=== PATIENT | male | born 1980 | race Caucasian/White ===

== ENCOUNTER 2017-03-30 10:12 | Emergency (ER) | payer OTHER ==
[~2017-03-30] VITALS: Ht 185.4 cm; Wt 110.5 kg
[~2017-03-30 10:12] MED LIST: BENZ100C70 PO; BTM.05O15 TOP; CYCL-319 PO; FLUT16SP24 NASAL; IBUP-1542 PO; IBUP800T25 PO; PROM6.25 PO; PSEU120T11 PO
[2017-03-30 10:14] VITALS: Ht 185.4 cm; Wt 110.5 kg
[2017-03-30] MEDS ORDERED: FLUORESCEIN STRIP BOTH EYES ONE (11:00)
[2017-03-30] MEDS ORDERED: TETRACAINE 0.5% 4 ML OPH BOTH EYES ONE (11:00)
[2017-03-30] MEDS ORDERED: OFLO5DRO46 BOTH EYES (11:47)
--- NOTE | 2017-03-30 15:49 | ERD ---
ER Documentation Chief Complaint Chief Complaint had pink eye last week, feels like something in right eye, red watering HPI 36-year-old male patient with no significant past medical history presents to the ED complaining of having conjunctivitis 1-2 weeks ago and reports that he had some purulent discharge in his bilateral eyes and crusts. Reports that he was applying eyedrops from [place]. Reports that he wears contacts. States that he is currently not wearing any contacts and does not own any glasses. Reports that he did some research online and put some lemon juice as well as aloe vera in his bilateral eyes which minimally alleviated his symptoms. States that he has blurred vision only because he is not wearing his contacts. Reports that he feels like he cut his eye and feels like there is a hair in his right eye. Denies any eye pain, vision loss, diplopia, photophobia, fever, chills, nausea, vomiting, headache, weakness. ROS All systems reviewed and are negative except as per history of present illness. Medications Home Meds Active Scripts Acetaminophen with Codeine (Acetaminophen-Cod #3 Tablet) 1 Each Tablet, 1 TAB PO Q6H Y for PAIN, #10 TAB Prov:LILLY OLSON MD 03/31/17 Ofloxacin* (Ocuflox*) 0.3%-5 Ml Ophth Drops, 1 DROP BOTH EYES QID, #1 BOTTLE instill 1 drop every 2 hours while awake for 2 days, THEN every 4-8 hours for 5 days Prov:JAYA CHAPA PA-C 03/30/17 Betamethasone Dipropionate* (Betamethasone Dipropionate*) 0.05% - 15 Gm Oint, 1 APPLIC TOP DAILY for 5 Days, #45 GM 0 Refills APPLY TO: Prov:HERNAN ALMENDAREZ PA-C 11/03/15 Cyclobenzaprine Hcl* (Cyclobenzaprine Hcl*) 10 Mg Tablet, 10 MG PO TID for 5 Days, #15 TAB 0 Refills Prov:HERNAN ALMENDAREZ PA-C 11/03/15 Ibuprofen* (Motrin*) 600 Mg Tab, 600 MG PO Q8 for 10 Days, #30 TAB 0 Refills Prov:HERNAN ALMENDAREZ PA-C 11/03/15 Ibuprofen* (Ibuprofen*) 800 Mg Tablet, 800 MG PO Q6H Y for PAIN, #30 TAB Prov:SILVIA STOUT PA-C 11/16/14 Fluticasone Propionate* (Flonase* Nasal) 50 Mcg/[place] - 16 Gm [place].susp, 1 SPRAY NASAL DAILY, #1 SPRAY TO EACH NOSTRIL Prov:SILVIA STOUT PA-C 11/16/14 Pseudoephedrine Hcl (Sudafe 12-Hour) 120 Mg Tablet.er, 30 MG PO BID Y for CONGESTION, #30 TAB.SA Prov:SILVIA STOUT PA-C 11/16/14 Promethazine w/Codeine* (Phenergan w/Codeine* Syrup) 5 Ml Syrup, 5 ML PO QHS Y for COUGH, #100 ML Prov:SILVIA STOUT PA-C 11/16/14 Benzonatate* (Tessalon Perle*) 100 Mg Capsule, 100 MG PO TID, #30 CAP Prov:SILVIA STOUT PA-C 11/16/14 Allergies Allergies: Coded Allergies: No Known Allergy (Unverified , 11/03/15) PMhx/Soc Hx Miscellaneous Medical Probl: Yes (SCIATICA) Hx Alcohol Use: No Hx Substance Use: Yes (marijuana*-/) Hx Tobacco Use: No Smoking Status: Current some day smoker Physical Exam Vitals Vital Signs Date Time Temp Pulse Resp B/P Pulse Ox O2 Delivery O2 Flow Rate FiO2 03/30/17 10:14 98.6 82 18 141/92 99 Physical Exam Const: [id number], well-nourished. In no acute distress. Head: Atraumatic, normocephalic Eyes: Normal Conjunctiva without injection. No purulent discharge. PERRLA. EOMI ENT: Normal external ear. Ear canal without erythema. Tympanic membrane pearly valentine without effusion or bulging. Nasal canal clear with normal turbinates. Moist oropharynx without tonsillar exudates. Non-erythematous pharynx. Uvula midline. No drooling. No trismus. Neck: No cervical midline tenderness. Full range of motion. No meningismus. No cervical lymphadenopathy. No JVD. Resp: Clear to auscultation bilaterally. No wheezing, rhonchi, rales, or crackles. No accessory muscle use. No retractions. Cardio: Regular rate and rhythm. No murmurs, rubs or gallops. Skin: Normal skin turgor. No petechiae or rashes Back: No midline tenderness. No CVA tenderness. Ext: No cyanosis, or edema. Distal pulses intact bilaterally. Neur: Awake and alert. Normal gait. Normal coordination. Cranial Nerves II- VII intact. Normal finger to nose. Muscle strength 5/5. Sensation intact. Psych: Normal Mood and Affect Results 24 hrs Current Medications Medications (Trade) Dose Ordered Sig/Lakshmi Route PRN Reason Start Time Stop Time Status Last Admin Dose Admin Tetracaine HCl (Tetracaine 0.5% Steri-Unit Tiana) 1 drop ONCE ONCE BOTH EYES 03/30/17 11:00 03/30/17 11:01 DC Fluorescein Sodium (Lyfva-R-Citcr) 1 strip ONCE ONCE BOTH EYES 03/30/17 11:00 03/30/17 11:01 DC Procedures/MDM 36-year-old male patient with no significant past medical history presents to the ED complaining of bilateral pinkeye and feeling like a foreign body sensation in his right eye. Patient is afebrile and nontoxic-appearing. Patient has normal vital signs. Eye Exam w/ Wood's lamp: Visual Acuity: [20/200 Bilateral. Patient is not wearing his contacts] Visual Spring: Intact in all four quadrants bilaterally Lac ducts/glands: No swelling Lids w/ evertion: Normal, no foreign body Conj/[place]: Clear, negative Fluorescein/Joyce's Anterior Chamber: Clear Patient's ocular symptoms have stabilized while they have been evaluated in the department and are appropriate for outpatient work up. Patient will be treated for a possible corneal abrasion vs. ulcer however no fluorescein uptake noted. Patient feels slightly better with normal saline eye wash here in the ED. Low suspicion for ruptured globe, retinal detachment, periorbital cellulitis, acute angle closure glaucoma, deep space infection, optic neuritis, retinal artery ischemia, iritis, traumatic hyphema, subconjunctival hemorrhage, pterygium, hypopyon, blepharitis, hordeolum, chalazion, or other emergent conditions. Discharge medications: Ocuflox Strictly instructed patient to follow up with an chief creative officer within 24 hours. Instructed patient to not wear his contacts and to purchase glasses. Instructed patient to return to the ED for any worsening symptoms. Patient is hemodynamically stable. Patient's questions were answered. Patient understood and agreed with discharge plan. Departure Diagnosis: Primary Impression: Sensation of foreign body in eye Patient Instructions: Corneal Injury, Contact Lens Referrals: [facility] YOU HAVE RECEIVED A MEDICAL SCREENING EXAM AND THE RESULTS INDICATE THAT YOU DO NOT HAVE A CONDITION THAT REQUIRES URGENT TREATMENT IN THE EMERGENCY DEPARTMENT. FURTHER EVALUATION AND TREATMENT OF YOUR CONDITION CAN WAIT UNTIL YOU ARE SEEN IN YOUR DOCTORS OFFICE WITHIN THE NEXT 1-2 DAYS. IT IS YOUR RESPONSIBILITY TO MAKE AN APPOINTMENT FOR FOLOW-UP CARE. IF YOU HAVE A PRIMARY DOCTOR --you should call your primary doctor and schedule an appointment IF YOU DO NOT HAVE A PRIMARY DOCTOR YOU CAN CALL OUR PHYSICIAN REFERRAL HOTLINE AT IF YOU CAN NOT AFFORD TO SEE A PHYSICIAN YOU CAN CHOSE FROM THE FOLLOWING [facility] [address] [facility] [address] [facility] [address] [facility] [address] [facility] [address] [facility] [facility] [address] [facility]. [facility] YOU HAVE RECEIVED A MEDICAL SCREENING EXAM AND THE RESULTS INDICATE THAT YOU DO NOT HAVE A CONDITION THAT REQUIRES URGENT TREATMENT IN THE EMERGENCY DEPARTMENT. FURTHER EVALUATION AND TREATMENT OF YOUR CONDITION CAN WAIT UNTIL YOU ARE SEEN IN YOUR DOCTORS OFFICE WITHIN THE NEXT 1-2 DAYS. IT IS YOUR RESPONSIBILITY TO MAKE AN APPOINTMENT FOR FOLOW-UP CARE. IF YOU HAVE A PRIMARY DOCTOR --you should call your primary doctor and schedule and appointment IF YOU DO NOT HAVE A PRIMARY DOCTOR YOU CAN CALL OUR PHYSICIAN REFERRAL HOTLINE AT . IF YOU CAN NOT AFFORD TO SEE A PHYSICIAN YOU CAN CHOSE FROM THE FOLLOWING [facility]: [facility] [address] [place] [address] [facility] [address] [place] [address] [facility] [address] [place] [address] [facility] Hours: Mon - Fri 9:00 AM - 5:00 PM Additional Instructions: FOLLOW UP WITH PRIVATE BANKER/OPTHALMOLOGIST WITHIN 24 HOURS.Return to this facility if you are not improving as expected - vision loss, eye pain, fever, etc. JAYA CHAPA PA-C Mar 30, 2017 15:49
[2017-03-31] MEDS ORDERED: ACET1TAB40 PO (17:01)
== END 2017-03-30 11:58 | disposition home or self-care (01) ==
LOC: FTE 10:12
DX: H57.8 Other specified disorders of eye and adnexa (principal); F17.210 Nicotine dependence, cigarettes, uncomplicated
CPT/HCPCS: Z7610 ×2; 99283

== ENCOUNTER 2017-03-31 16:15 | Emergency (ER) | payer OTHER ==
[~2017-03-31] VITALS: Ht 188 cm; Wt 109.6 kg
[~2017-03-31 16:15] MED LIST changes: +OFLO5DRO46 BOTH EYES
[2017-03-31 16:18] VITALS: Ht 188 cm; Wt 109.6 kg
[2017-03-31] MEDS ORDERED: IBUPROFEN 600 MG TAB PO ONE (17:00)
[2017-03-31] MEDS ORDERED: CIPROFLOXACIN 0.3% 2.5 ML OPH LEFT EYE ONE (17:00)
[2017-03-31] MEDS ORDERED: traMADol 50 MG TAB PO ONE (17:00)
[2017-03-31] MEDS ORDERED: ACET1TAB40 PO (17:01)
--- NOTE | 2017-03-31 17:07 | ERD ---
ER Documentation Chief Complaint Chief Complaint left eye pain after wearing contact was here yesterday, dx conjunctivitis HPI This 28-year-old male presents with left eye pain. History significant for having self-described pinkeye while in [place] 2 weeks ago. He did have some symptoms which improved but he feels like he reinfected himself by wearing his contacts. Seen here yesterday diagnosed with corneal abrasion or conjunctivitis and prescribed Ciloxan. He did not think of his medication from the pharmacy. He does not have glasses he has very poor visual acuity without his contacts. Patient had a job interview today and put his contacts to temporarily be able to drive. He had worsening of pain today in the left eye. Denies any purulent discharge or visual field deficits fevers. ROS All systems reviewed and are negative except as per history of present illness. Medications Home Meds Active Scripts Acetaminophen with Codeine (Acetaminophen-Cod #3 Tablet) 1 Each Tablet, 1 TAB PO Q6H Y for PAIN, #10 TAB Prov:LILLY OLSON MD 03/31/17 Ofloxacin* (Ocuflox*) 0.3%-5 Ml Ophth Drops, 1 DROP BOTH EYES QID, #1 BOTTLE instill 1 drop every 2 hours while awake for 2 days, THEN every 4-8 hours for 5 days Prov:JAYA CHAPA PA-C 03/30/17 Betamethasone Dipropionate* (Betamethasone Dipropionate*) 0.05% - 15 Gm Oint, 1 APPLIC TOP DAILY for 5 Days, #45 GM 0 Refills APPLY TO: Prov:HERNAN ALMENDAREZ PA-C 11/03/15 Cyclobenzaprine Hcl* (Cyclobenzaprine Hcl*) 10 Mg Tablet, 10 MG PO TID for 5 Days, #15 TAB 0 Refills Prov:HERANN ALMENDAREZ PA-C 11/03/15 Ibuprofen* (Motrin*) 600 Mg Tab, 600 MG PO Q8 for 10 Days, #30 TAB 0 Refills Prov:HERNAN ALMENDAREZ PA-C 11/03/15 Ibuprofen* (Ibuprofen*) 800 Mg Tablet, 800 MG PO Q6H Y for PAIN, #30 TAB Prov:SILVIA STOUT PA-C 11/16/14 Fluticasone Propionate* (Flonase* Nasal) 50 Mcg/[place] - 16 Gm [place].susp, 1 SPRAY NASAL DAILY, #1 SPRAY TO EACH NOSTRIL Prov:SILVIA STOUT PA-C 11/16/14 Pseudoephedrine Hcl (Sudafe 12-Hour) 120 Mg Tablet.er, 30 MG PO BID Y for CONGESTION, #30 TAB.SA Prov:SILVIA STOUT PA-C 11/16/14 Promethazine w/Codeine* (Phenergan w/Codeine* Syrup) 5 Ml Syrup, 5 ML PO QHS Y for COUGH, #100 ML Prov:SILVIA STOUT PA-C 11/16/14 Benzonatate* (Tessalon Perle*) 100 Mg Capsule, 100 MG PO TID, #30 CAP Prov:SILVIA STOUT PA-C 11/16/14 Allergies Allergies: Coded Allergies: No Known Allergy (Unverified , 11/03/15) PMhx/Soc Medical and Surgical Hx: pt denies Medical Hx, pt denies Surgical Hx Hx Miscellaneous Medical Probl: Yes (SCIATICA) Hx Alcohol Use: No Hx Substance Use: Yes (marijuana*-/) Hx Tobacco Use: No Smoking Status: Never smoker Physical Exam Vitals Vital Signs Date Time Temp Pulse Resp B/P Pulse Ox O2 Delivery O2 Flow Rate FiO2 03/31/17 16:18 97.6 82 18 174/96 100 Physical Exam Const: [] Alert, [id number]. But uncomfortable due to pain. Head: Atraumatic Eyes: Scleral redness. Very slight punctate fluorescein uptake at 6:00. Anterior chambers appear normal. No cloudy cornea. Eyes are PERRLA and extraocular movements intact. No proptosis or erythema. ENT: Normal External Ears, Nose and Mouth. Neck: Full range of motion..~ No meningismus. Resp: Clear to auscultation bilaterally Cardio: Regular rate and rhythm, no murmurs Abd: Soft, non tender, non distended. Normal bowel sounds Skin: No petechiae or rashes Back: No midline or flank tenderness Ext: No cyanosis, or edema Neur: Awake and alert Psych: Normal Mood and Affect Results 24 hrs Current Medications Medications (Trade) Dose Ordered Sig/Lakshmi Route PRN Reason Start Time Stop Time Status Last Admin Dose Admin Ciprofloxacin HCl (Ciloxan 0.3% Oph) 2 drop ONCE ONCE LEFT EYE 03/31/17 17:00 03/31/17 17:01 DC Ibuprofen (Motrin) 600 mg ONCE ONCE PO 03/31/17 17:00 03/31/17 17:01 DC Tramadol HCl (Ultram) 50 mg ONCE ONCE PO 03/31/17 17:00 03/31/17 17:01 DC Procedures/MDM Patient presents with left eye pain and signs of likely small corneal abrasion or possibly tiny ulcer. There is no evidence of new visual changes or visual field deficits. No evidence of orbital cellulitis, signs or symptoms suggest optic neuritis, retinal artery ischemia, retinal detachment. Patient was administered Cipro eyedrops here and she is noncompliant with his prescription. He is also given tramadol ibuprofen and reinforced recommendations for follow- up with ophthalmology. He was given resources for local ophthalmology. Patient was advised also to wear glasses while his eye condition resolves. Patient states that he does not have any money for glasses but encouraged to not wear contacts if he is having symptoms nonetheless. The patient was stable with no new complaints during the ER course. Clinically, there is no current evidence to suggest meningitis, sepsis, acute abdomen, pneumonia, acute coronary syndrome, pulmonary embolism, or any other emergent condition appearing to require further evaluation or hospitalization. The patient should certainly return for any new or worsening symptoms per the aftercare instructions. They should otherwise follow-up with her primary care doctor for reevaluation this week. Departure Diagnosis: Primary Impression: Corneal abrasion Encounter type: initial encounter Laterality: left Qualified Code: S05.02XA - Abrasion of left cornea, initial encounter Condition: Stable Patient Instructions: Corneal Abrasion, Corneal Injury, Contact Lens, Corneal Ulcer Referrals: [facility] Hours: Mon - Fri 9:00 AM - 5:00 PM Additional Instructions: LIKELY A corneal abrasion or possibly infection. See regional otr company driver for further management treatment. Recommend no contact lenses until symptoms are completely resolved. Use ophthalmic drops as prescribed 4 times a day. LILLY OLSON MD Mar 31, 2017 17:07
== END 2017-03-31 17:29 | disposition home or self-care (01) ==
LOC: FTE 16:15
DX: S05.02XA Injury of conjunctiva and corneal abrasion without foreign body, left eye, initial encounter (principal); X58.XXXA Exposure to other specified factors, initial encounter; Y92.9 Unspecified place or not applicable
CPT/HCPCS: Z7502; Z7610; 99283

== ENCOUNTER 2018-04-21 22:08 | Emergency (ER) | END 2018-04-22 00:38 | disposition home or self-care (01) ==